=== PATIENT | male | born 1945 | race Caucasian/White ===

== ENCOUNTER → 2023-06-06 13:07 | Outpatient (REF) | payer MEDICARE, BC, SELFPAY | LOC: HWRAD 13:07 | PROVIDERS: ATTENDING PHYSICIAN Family Medicine | DX: N18.31 Chronic kidney disease, stage 3a (principal) | CPT/HCPCS: 76775 ==

== ENCOUNTER → 2023-10-03 14:09 | Outpatient (REF) | payer MEDICARE, BC, SELFPAY | LOC: RAD 14:09 | PROVIDERS: ATTENDING PHYSICIAN Registered Nurse | DX: G60.8 Other hereditary and idiopathic neuropathies (principal); I87.2 Venous insufficiency (chronic) (peripheral) | CPT/HCPCS: 93922; 93925; 93970 ==

== ENCOUNTER → 2024-08-15 09:17 | Outpatient (REF) | payer MEDICARE, BC, SELFPAY | LOC: RAD 09:17 | PROVIDERS: ATTENDING PHYSICIAN Family Medicine | DX: Z85.810 Personal history of malignant neoplasm of tongue (principal); M85.88 Other specified disorders of bone density and structure, other site | CPT/HCPCS: 77080 ==

== ENCOUNTER → 2024-09-25 06:18 | Day surgery (SDC) | payer MEDICARE, BC, SELFPAY | LOC: GI 06:18 | PROVIDERS: ATTENDING PHYSICIAN Specialist | DX: R19.5 Other fecal abnormalities (principal); R19.4 Change in bowel habit; Z53.8 Procedure and treatment not carried out for other reasons | CPT/HCPCS: 45378; G0378 ==

== ENCOUNTER 2025-01-03 06:17 | Day surgery (SDC) | payer MEDICARE, BC, SELFPAY | END 2025-01-03 14:44 | disposition home or self-care (01) | LOC: GI 06:17 | PROVIDERS: ATTENDING PHYSICIAN Specialist; FAMILY PHYSICIAN Family Medicine | DX: Z12.11 Encounter for screening for malignant neoplasm of colon (principal); D12.0 Benign neoplasm of cecum; D12.2 Benign neoplasm of ascending colon; D12.3 Benign neoplasm of transverse colon; R19.5 Other fecal abnormalities; K64.8 Other hemorrhoids | CPT/HCPCS: 45385; 45380; 88305 ==